=== PATIENT | female | born 1955 | race Caucasian/White ===

== ENCOUNTER 2019-04-28 10:53 | Observation (INO) ==
[2019-04-28 11:26] LABS: Hematocrit 36.4 % (35.3-44.9); Hemoglobin 11.8 g/dL (11.5-15.4); Immature Granulocytes % 0.5 % (0-4); Mean Corpuscular HGB Conc 32.4 g/dL (31.6-35.5)
[2019-04-28 11:28] LABS: Lymphocytes # 0.6 K/mcL (0.6-4.6); Lymphocytes % 27.9 %; Mean Corpuscular Hemoglobin 28.8 pg (28.0-33.3); Mean Corpuscular Volume 88.8 fL (83.0-100.0); Mean Platelet Volume 9.6 fL (9.4-12.4); Monocytes # 0.1 K/mcL (0.0-1.3); Monocytes % 6.5 %; Red Cell Distribution Width 15.5 % (11.5-14.5); Segmented Neutrophils % 62.1 %
[2019-04-28 11:51] LABS: Neutrophils # 1.2 K/mcL (1.6-8.9); Platelet Count 49 K/mcL (140-400); Platelet Estimate Decreased (Normal)
[2019-04-28 11:57] LABS: Alanine Aminotransferase 32 Units/L (7-52); Albumin 3.4 g/dL (3.5-5.7); Alkaline Phosphatase 119 Units/L (34-104); Aspartate Amino Transferase 40 Units/L (13-39); BUN/Creatinine Ratio 26 (6-26); Bilirubin,Total 1.7 mg/dL (0.3-1.0); Blood Urea Nitrogen 10 mg/dL (8-23); Calcium 8.7 mg/dL (8.6-10.3); Carbon Dioxide 26 mEq/L (23-29); Chloride 105 mEq/L (98-107); Globulin 3.3 g/dL (2.4-3.5); Glucose 136 mg/dL (70-105); Osmolality,Calculated 293 (280-300); Potassium 3.9 mEq/L (3.5-5.1); Sodium 141 mEq/L (136-145); Total Protein 6.7 g/dL (6.4-8.9); Troponin I < 0.03 ng/mL (< 0.04); eGFR For African Americans > 60 (> 60); eGFR For Non-African Americans > 60 (> 60)
[2019-04-28 12:02] LABS: INR 1.3; Prothrombin Time 14.5 Seconds (9.4-12.1)
[2019-04-28 12:05] LABS: Activated Partial Thrombo Time 34.7 Seconds (26.0-36.0)
[2019-04-28] MEDS ORDERED: Ondansetron 4 MG/2 ML VIAL IVP PRN (13:01)
[2019-04-28] MEDS ORDERED: Naloxone 0.4 MG/ML INJ IVP PRN (13:01)
[2019-04-28 13:20] LABS: Lactate Dehydrogenase 230 Units/L (140-271)
[2019-04-28] MEDS ORDERED: *HR* Dextrose 50 % in Water (Syg) 50 ML SYRINGE IVP PRN (15:00)
[2019-04-28] MEDS ORDERED: D5% in Water 1,000 ML IVC PRN (15:00)
[2019-04-28] MEDS ORDERED: Dextrose Gel 15 GM/37.5 ML TUBE PO PRN ×2 (15:00)
[2019-04-28 15:26] LABS: RBC,Pleural Fluid 0.003 M/mcL
[2019-04-28 15:38] LABS: Amylase,Pleural Fluid 23 Units/L (No Ref Range); Glucose,Pleural Fluid 154 mg/dL (No Ref Range); LDH,Pleural Fluid 83 Units/L (No Ref Range); Total Protein,Pleural Fluid < 3.0 g/dL
[2019-04-28 15:59] LABS: Appearance of Pleural Fl Hazy (Clear)
[2019-04-28 16:24] LABS: Basophils,Pleural Fluid 0 %; Eosinophils,Pleural Fluid 0 %; Monocytes,Pleural Fluid 0 %
[2019-04-28] MEDS: Insulin LISPRO 300 UNITS/3 ML VIAL SQ SCH (16:40)
[2019-04-28] MEDS ORDERED: Perflutren Lipid Microsphere 1.3 ML in 0.9 % Sodium Chloride 8.7 ML IVP ONE (19:55)
[2019-04-28] MEDS ORDERED: Insulin LISPRO 300 UNITS/3 ML VIAL SQ SCH (21:00)
[2019-04-29] MEDS: Insulin LISPRO 300 UNITS/3 ML VIAL SQ SCH ×2 (08:19→13:37)
[2019-04-29] MEDS ORDERED: Furosemide 40 MG TABLET PO SCH (09:00)
[2019-04-29 09:05] LABS: Red Cell Distribution Width 15.5 % (11.5-14.5)
[2019-04-29 09:07] LABS: Hematocrit 36.8 % (35.3-44.9); Hemoglobin 11.6 g/dL (11.5-15.4); Immature Platelets 4.3 % (1.1-6.1); Mean Corpuscular HGB Conc 31.5 g/dL (31.6-35.5); Mean Corpuscular Hemoglobin 27.8 pg (28.0-33.3); Mean Corpuscular Volume 88.2 fL (83.0-100.0); Mean Platelet Volume 11.1 fL (9.4-12.4); Red Blood Count 4.17 M/mcL (3.82-4.97)
[2019-04-29 09:09] LABS: INR 1.4; Prothrombin Time 15.6 Seconds (9.4-12.1)
[2019-04-29 09:26] LABS: Alanine Aminotransferase 28 Units/L (7-52); Albumin 3.1 g/dL (3.5-5.7); Alkaline Phosphatase 100 Units/L (34-104); Aspartate Amino Transferase 39 Units/L (13-39); BUN/Creatinine Ratio 26 (6-26); Bilirubin,Total 2.1 mg/dL (0.3-1.0); Blood Urea Nitrogen 10 mg/dL (8-23); Calcium 8.6 mg/dL (8.6-10.3); Carbon Dioxide 24 mEq/L (23-29); Chloride 109 mEq/L (98-107); Globulin 3.2 g/dL (2.4-3.5); Glucose 114 mg/dL (70-105); Magnesium 1.6 mg/dL (1.6-2.6); Osmolality,Calculated 288 (280-300); Potassium 3.8 mEq/L (3.5-5.1); Sodium 139 mEq/L (136-145); Total Protein 6.3 g/dL (6.4-8.9); eGFR For African Americans > 60 (> 60); eGFR For Non-African Americans > 60 (> 60)
[2019-04-29 14:33] VITALS: BP 154/72
== END 2019-04-29 16:00 | disposition home or self-care (01) ==
LOC: 3ANU 10:53 → EMEROOARM 10:53 → SUATTDRO 13:33 → 3ANU 14:25
PROVIDERS: ADMIT Internal Medicine; ATTEND Family Medicine

== ENCOUNTER 2019-05-11 18:44 | Observation (INO) ==
[2019-05-11] MEDS ORDERED: Metoclopramide 10 MG/2 ML VIAL IVP ONE (21:04)
[2019-05-11] MEDS ORDERED: 0.9 % Sodium Chloride 1,000 ML IVC ONE (21:04)
[2019-05-11 22:00] LABS: INR 1.3; Prothrombin Time 15.3 Seconds (9.4-12.1)
[2019-05-11 22:03] LABS: Basophils % 0.8 %; Eosinophils # 0.1 K/mcL (0.0-0.6); Hematocrit 38.3 % (35.3-44.9); Hemoglobin 12.2 g/dL (11.5-15.4); Immature Granulocytes % 0.4 % (0-4); Immature Platelets 4.1 % (1.1-6.1); Lymphocytes # 0.7 K/mcL (0.6-4.6); Lymphocytes % 26.6 %; Mean Corpuscular HGB Conc 31.9 g/dL (31.6-35.5); Mean Platelet Volume 10.7 fL (9.4-12.4); Monocytes # 0.2 K/mcL (0.0-1.3); Monocytes % 7.3 %; Neutrophils # 1.6 K/mcL (1.6-8.9); Red Blood Count 4.35 M/mcL (3.82-4.97); Red Cell Distribution Width 14.8 % (11.5-14.5); Segmented Neutrophils % 62.9 %; White Blood Count 2.5 K/mcL (4.3-11.1)
[2019-05-11 22:19] LABS: Alanine Aminotransferase 21 Units/L (7-52); Albumin 3.3 g/dL (3.5-5.7); Albumin/Globulin Ratio 0.9 (1.1-2.2); Alkaline Phosphatase 124 Units/L (34-104); Aspartate Amino Transferase 40 Units/L (13-39); BUN/Creatinine Ratio 30 (6-26); Bilirubin,Direct 0.2 mg/dL (0.0-0.2); Bilirubin,Indirect 0.7 mg/dL (0.0-1.0); Bilirubin,Total 0.9 mg/dL (0.3-1.0); Blood Urea Nitrogen 13 mg/dL (8-23); Calcium 8.7 mg/dL (8.6-10.3); Carbon Dioxide 29 mEq/L (23-29); Chloride 105 mEq/L (98-107); Globulin 3.5 g/dL (2.4-3.5); Glucose 166 mg/dL (70-105); Osmolality,Calculated 288 (280-300); Potassium 4.3 mEq/L (3.5-5.1); Sodium 137 mEq/L (136-145); Total Protein 6.8 g/dL (6.4-8.9); Troponin I < 0.03 ng/mL (< 0.04); eGFR For African Americans > 60 (> 60); eGFR For Non-African Americans > 60 (> 60)
[2019-05-11 22:29] LABS: Platelet Count 59 K/mcL (140-400)
[2019-05-11 22:31] LABS: Platelet Estimate Marked Decrease (Normal)
[2019-05-11 22:32] LABS: Reactive Lymphocytes Present (Not Present)
[2019-05-12] MEDS ORDERED: Naloxone 0.4 MG/ML INJ IVP PRN (00:36)
[2019-05-12] MEDS ORDERED: D5% in Water 1,000 ML IVC PRN (00:37)
[2019-05-12] MEDS ORDERED: *HR* Dextrose 50 % in Water (Syg) 50 ML SYRINGE IVP PRN (00:37)
[2019-05-12] MEDS ORDERED: Dextrose Gel 15 GM/37.5 ML TUBE PO PRN ×2 (00:37)
[2019-05-12] MEDS ORDERED: Azithromycin 500 MG in 0.9 % Sodium Chloride 250 ML IVPB SCH (02:00)
[2019-05-12 06:10] LABS: Immature Granulocytes % 0.4 % (0-4); Red Cell Distribution Width 15.1 % (11.5-14.5)
[2019-05-12 06:11] LABS: Basophils % 0.4 %; Eosinophils # 0.1 K/mcL (0.0-0.6); Eosinophils % 2.2 %; Hematocrit 33.7 % (35.3-44.9); Immature Platelets 2.7 % (1.1-6.1); Lymphocytes # 0.7 K/mcL (0.6-4.6); Lymphocytes % 31.5 %; Mean Corpuscular HGB Conc 32.6 g/dL (31.6-35.5); Mean Corpuscular Hemoglobin 28.7 pg (28.0-33.3); Mean Platelet Volume 10.6 fL (9.4-12.4); Monocytes # 0.2 K/mcL (0.0-1.3); Monocytes % 7.3 %; Red Blood Count 3.83 M/mcL (3.82-4.97); Segmented Neutrophils % 58.2 %; White Blood Count 2.3 K/mcL (4.3-11.1)
[2019-05-12 06:17] LABS: Neutrophils # 1.3 K/mcL (1.6-8.9); Platelet Count 58 K/mcL (140-400)
[2019-05-12 06:26] LABS: BUN/Creatinine Ratio 36 (6-26); Blood Urea Nitrogen 13 mg/dL (8-23); Calcium 8.3 mg/dL (8.6-10.3); Carbon Dioxide 29 mEq/L (23-29); Chloride 107 mEq/L (98-107); Glucose 120 mg/dL (70-105); Osmolality,Calculated 289 (280-300); Potassium 3.8 mEq/L (3.5-5.1); Sodium 139 mEq/L (136-145); eGFR For African Americans > 60 (> 60); eGFR For Non-African Americans > 60 (> 60)
[2019-05-12 06:43] LABS: Platelet Estimate Decreased (Normal)
[2019-05-12] MEDS ORDERED: Furosemide 40 MG TABLET PO SCH (09:00)
[2019-05-12 10:16] VITALS: BP 128/78
[2019-05-12] MEDS ORDERED: Furosemide 20 MG TABLET PO SCH (18:00)
[2019-05-12] MEDS ORDERED: Insulin LISPRO 300 UNITS/3 ML VIAL SQ SCH (21:00)
== END 2019-05-12 14:45 | disposition home or self-care (01) ==
LOC: 3ANU 18:44 → EMEROOARM 18:44 → SUATTDRO 05-12 00:02 → 3ANU 05-12 01:22
PROVIDERS: ADMIT Student in an Organized Health Care Education/Training Program; ATTEND Internal Medicine

== ENCOUNTER 2021-10-29 10:28 | Observation (INO) ==
[2021-10-29 11:48] LABS: Hematocrit 32.5 % (35.3-44.9); Immature Granulocytes % 0.4 % (0-4); Red Blood Count 3.65 M/mcL (3.82-4.97)
[2021-10-29 11:50] LABS: Basophils % 0.7 %; Eosinophils # 0.1 K/mcL (0.0-0.6); Eosinophils % 1.8 %; Hemoglobin 10.7 g/dL (11.5-15.4); Immature Platelets 4.8 % (1.1-6.1); Lymphocytes # 0.4 K/mcL (0.6-4.6); Lymphocytes % 13.5 %; Mean Corpuscular HGB Conc 32.9 g/dL (31.6-35.5); Mean Corpuscular Hemoglobin 29.3 pg (28.0-33.3); Mean Platelet Volume 10.5 fL (9.4-12.4); Monocytes # 0.2 K/mcL (0.0-1.3); Monocytes % 8.2 %; Neutrophils # 2.1 K/mcL (1.6-8.9); Red Cell Distribution Width 14.3 % (11.5-14.5); Segmented Neutrophils % 75.4 %; White Blood Count 2.8 K/mcL (4.3-11.1)
[2021-10-29 12:08] LABS: Platelet Count 48 K/mcL (140-400)
[2021-10-29 12:09] LABS: Platelet Estimate Decreased (Normal)
[2021-10-29 12:10] LABS: Alanine Aminotransferase 27 Units/L (7-52); Albumin 3.2 g/dL (3.5-5.7); Albumin/Globulin Ratio 1.1 (1.1-2.2); Alkaline Phosphatase 135 Units/L (34-104); Aspartate Amino Transferase 32 Units/L (13-39); BUN/Creatinine Ratio 26 (6-26); Bilirubin,Total 1.9 mg/dL (0.3-1.0); Blood Urea Nitrogen 22 mg/dL (8-23); Calcium 8.7 mg/dL (8.6-10.3); Carbon Dioxide 31 mEq/L (23-29); Chloride 98 mEq/L (98-107); Glucose 166 mg/dL (70-105); Osmolality,Calculated 285 (280-300); Sodium 134 mEq/L (136-145); Total Protein 6.2 g/dL (6.4-8.9)
[2021-10-29 12:34] LABS: Troponin I < 0.03 ng/mL (< 0.04)
[2021-10-29] MEDS ORDERED: Naloxone 0.4 MG/ML INJ IVP PRN (13:03)
[2021-10-29] MEDS ORDERED: tiZANidine 4 MG TABLET PO PRN (14:32)
[2021-10-29] MEDS ORDERED: *HR* Dextrose 50 % in Water (Syg) 50 ML SYRINGE IVP PRN (14:33)
[2021-10-29] MEDS ORDERED: Dextrose Gel 15 GM/37.5 ML TUBE PO PRN ×2 (14:33)
[2021-10-29] MEDS ORDERED: D5% in Water 1,000 ML IVC PRN (14:33)
[2021-10-29] MEDS ORDERED: Furosemide 20 MG TABLET PO SCH (18:00)
[2021-10-29] MEDS: Insulin LISPRO 300 UNITS/3 ML VIAL SUBQ SCH (18:02)
[2021-10-29] MEDS: URSODIOL 500 MG PO SCH (19:55)
[2021-10-30 06:42] VITALS: BP 98/63; PULSE 84; TEMP 98.7; O2SAT 94
[2021-10-30] MEDS: Insulin LISPRO 300 UNITS/3 ML VIAL SUBQ SCH (07:58)
[2021-10-30] MEDS ORDERED: Furosemide 40 MG TABLET PO SCH (09:00)
[2021-10-30] MEDS: URSODIOL 500 MG PO SCH (09:04)
== END 2021-10-30 10:58 | disposition home or self-care (01) ==
LOC: EMEROOARM 10:28 → 2ANU 10:28 → SUATTDRO 13:05 → 2ANU 15:32
PROVIDERS: ADMIT Internal Medicine; ATTEND Internal Medicine

== ENCOUNTER 2021-11-04 00:01 | Observation (INO) ==
[2021-11-04 01:59] LABS: Hemoglobin 11.5 g/dL (11.5-15.4); Immature Granulocytes % 0.4 % (0-4)
[2021-11-04 02:01] LABS: Basophils % 0.4 %; Eosinophils # 0.1 K/mcL (0.0-0.6); Eosinophils % 2.1 %; Hematocrit 35.2 % (35.3-44.9); Immature Platelets 4.6 % (1.1-6.1); Lymphocytes # 0.4 K/mcL (0.6-4.6); Lymphocytes % 15.4 %; Mean Corpuscular HGB Conc 32.7 g/dL (31.6-35.5); Mean Corpuscular Hemoglobin 29.7 pg (28.0-33.3); Mean Platelet Volume 11.4 fL (9.4-12.4); Monocytes # 0.2 K/mcL (0.0-1.3); Monocytes % 8.7 %; Neutrophils # 1.8 K/mcL (1.6-8.9); Red Blood Count 3.87 M/mcL (3.82-4.97); Red Cell Distribution Width 14.6 % (11.5-14.5)
[2021-11-04 02:17] LABS: BUN/Creatinine Ratio 27 (6-26); Blood Urea Nitrogen 26 mg/dL (8-23); Calcium 8.7 mg/dL (8.6-10.3); Carbon Dioxide 26 mEq/L (23-29); Chloride 102 mEq/L (98-107); Glucose 108 mg/dL (70-105); Osmolality,Calculated 285 (280-300); Platelet Count 49 K/mcL (140-400); Potassium 3.4 mEq/L (3.5-5.1); Sodium 135 mEq/L (136-145)
[2021-11-04 02:18] LABS: Troponin I < 0.03 ng/mL (< 0.04); White Blood Count 2.4 K/mcL (4.3-11.1)
[2021-11-04] MEDS ORDERED: Ondansetron 4 MG/2 ML VIAL IVP PRN (03:48)
[2021-11-04] MEDS ORDERED: Naloxone 0.4 MG/ML INJ IVP PRN (03:48)
[2021-11-04] MEDS ORDERED: Acetaminophen 325 MG TABLET PO PRN (03:48)
[2021-11-04] MEDS ORDERED: Dextrose Gel 15 GM/37.5 ML TUBE PO PRN ×2 (03:51)
[2021-11-04] MEDS ORDERED: *HR* Dextrose 50 % in Water (Syg) 50 ML SYRINGE IVP PRN (03:51)
[2021-11-04] MEDS ORDERED: D5% in Water 1,000 ML IVC PRN (03:51)
[2021-11-04] MEDS ORDERED: Potassium Chloride Elixir 20 MEQ/15 ML UDC PO ONE (03:51)
[2021-11-04 05:21] LABS: Adenovirus Not Detected (Not Detect); Bordetella Pertussis Not Detected (Not Detect); Chlamydophila pneumoniae Not Detected (Not Detect); Coronavirus 229E Not Detected (Not Detect); Coronavirus HKU1 Not Detected (Not Detect); Coronavirus NL63 Not Detected (Not Detect); Coronavirus OC43 Not Detected (Not Detect); Human Metapneumovirus Not Detected (Not Detect); Human Rhinovirus/Enterovirus Not Detected (Not Detect); Influenza A Subtype 2009 H1 Not Detected (Not Detect); Influenza B Not Detected (Not Detect); Mycoplasma pneumoniae Not Detected (Not Detect); Parainfluenza Virus 1 Not Detected (Not Detect); Parainfluenza Virus 2 Not Detected (Not Detect); Parainfluenza Virus 3 Not Detected (Not Detect); Parainfluenza Virus 4 Not Detected (Not Detect); Respiratory Syncytial Virus Not Detected (Not Detect); SARS-CoV-2 Not Detected (Not Detect)
[2021-11-04] MEDS ORDERED: Furosemide 40 MG/4 ML VIAL IVP ONE (06:23)
[2021-11-04 08:33] LABS: Hemoglobin 10.9 g/dL (11.5-15.4); Immature Granulocytes % 0.5 % (0-4)
[2021-11-04 08:35] LABS: Basophils % 0.5 %; Eosinophils % 1.4 %; Immature Platelets 4.4 % (1.1-6.1); Lymphocytes # 0.4 K/mcL (0.6-4.6); Lymphocytes % 18.8 %; Mean Corpuscular Hemoglobin 29.5 pg (28.0-33.3); Mean Corpuscular Volume 89.4 fL (83.0-100.0); Mean Platelet Volume 10.8 fL (9.4-12.4); Monocytes # 0.2 K/mcL (0.0-1.3); Monocytes % 11.1 %; Neutrophils # 1.4 K/mcL (1.6-8.9); Red Blood Count 3.69 M/mcL (3.82-4.97); Red Cell Distribution Width 14.6 % (11.5-14.5); Segmented Neutrophils % 67.7 %; White Blood Count 2.1 K/mcL (4.3-11.1)
[2021-11-04 08:40] LABS: Platelet Count 42 K/mcL (140-400)
[2021-11-04 08:41] LABS: INR 1.2; Prothrombin Time 13.5 Seconds (9.4-12.1)
[2021-11-04 08:44] LABS: Activated Partial Thrombo Time 31.8 Seconds (26.0-36.0); Bilirubin,Total 1.4 mg/dL (0.3-1.0); Calcium 8.4 mg/dL (8.6-10.3); Globulin 3.1 g/dL (2.4-3.5); Phosphorous 3.3 mg/dL (2.7-4.5); Potassium 3.2 mEq/L (3.5-5.1); Total Protein 6.1 g/dL (6.4-8.9)
[2021-11-04] MEDS: Insulin LISPRO 300 UNITS/3 ML VIAL SUBQ SCH ×3 (09:26→17:50)
[2021-11-05 03:45] LABS: Basophils % 1.3 %; Hematocrit 30.6 % (35.3-44.9); Mean Corpuscular HGB Conc 32.7 g/dL (31.6-35.5); Red Cell Distribution Width 14.4 % (11.5-14.5)
[2021-11-05 03:47] LABS: Eosinophils # 0.1 K/mcL (0.0-0.6); Eosinophils % 3.2 %; Immature Granulocytes % 0.6 % (0-4); Lymphocytes # 0.3 K/mcL (0.6-4.6); Lymphocytes % 20.9 %; Mean Corpuscular Volume 88.7 fL (83.0-100.0); Mean Platelet Volume 10.6 fL (9.4-12.4); Monocytes # 0.2 K/mcL (0.0-1.3); Monocytes % 11.4 %; Red Blood Count 3.45 M/mcL (3.82-4.97); Segmented Neutrophils % 62.6 %; White Blood Count 1.6 K/mcL (4.3-11.1)
[2021-11-05 03:49] LABS: Platelet Count 51 K/mcL (140-400)
[2021-11-05 04:03] LABS: Albumin 2.7 g/dL (3.5-5.7); Bilirubin,Total 1.2 mg/dL (0.3-1.0); Calcium 8.5 mg/dL (8.6-10.3); Globulin 2.7 g/dL (2.4-3.5); Potassium 3.9 mEq/L (3.5-5.1); Total Protein 5.4 g/dL (6.4-8.9)
[2021-11-05] MEDS: Insulin LISPRO 300 UNITS/3 ML VIAL SUBQ SCH ×2 (07:39→12:11)
[2021-11-05] MEDS ORDERED: ceFAZolin 2,000 MG in D5% in Water 100 ML IVPB ONE (11:03)
[2021-11-05] MEDS ORDERED: CeFAZolin 2,000 MG/120 ML BAG IVPB ONE (11:45)
[2021-11-05 13:45] VITALS: BP 111/69; PULSE 84; TEMP 98.3; O2SAT 93
[2021-11-05] MEDS ORDERED: tiZANidine 4 MG TABLET PO PRN (13:57)
[2021-11-05] MEDS ORDERED: Furosemide 20 MG TABLET PO SCH (18:00)
[2021-11-05] MEDS ORDERED: URSODIOL 500 MG PO SCH (21:00)
[2021-11-06] MEDS ORDERED: Cholecalciferol (D-3) 1,000 UNIT (25MCG) TABLET PO SCH (09:00)
[2021-11-06] MEDS ORDERED: Cyanocobalamin (B-12) 1,000 MCG TABLET PO SCH (09:00)
[2021-11-06] MEDS ORDERED: Furosemide 40 MG TABLET PO SCH (09:00)
== END 2021-11-05 15:51 | disposition home or self-care (01) ==
LOC: 2ANU 00:01 → EMEROOARM 00:01 → SUATTDRO 03:48 → 2ANU 03:52
PROVIDERS: ADMIT Internal Medicine; ATTEND Family Medicine
PROC: IRDRAIN (2021-11-05 12:00)